=== PATIENT | female | born 1950 | race Caucasian/White ===

== ENCOUNTER → 2018-01-31 | Outpatient (RCR) | payer MEDICARE | LOC: PT 01-13 12:59 | PROVIDERS: ATTEND Specialist | DX: S82.892A Other fracture of left lower leg, initial encounter for closed fracture (principal); G14 Postpolio syndrome; M25.572 Pain in left ankle and joints of left foot; M25.672 Stiffness of left ankle, not elsewhere classified; M62.82 Rhabdomyolysis; R29.3 Abnormal posture; R26.9 Unspecified abnormalities of gait and mobility; R26.89 Other abnormalities of gait and mobility; R26.81 Unsteadiness on feet | CPT/HCPCS: 97110 ×6; 97112 ×2; 97162; G8978; G8979 ==

== ENCOUNTER 2018-02-27 16:00 | Outpatient (RCR) | payer MEDICARE | END 2018-03-03 | LOC: PT 16:00 | PROVIDERS: ATTEND Specialist | DX: S82.892A Other fracture of left lower leg, initial encounter for closed fracture (principal); G14 Postpolio syndrome; M25.572 Pain in left ankle and joints of left foot; M25.672 Stiffness of left ankle, not elsewhere classified; M62.81 Muscle weakness (generalized); R29.3 Abnormal posture; R26.9 Unspecified abnormalities of gait and mobility; R26.89 Other abnormalities of gait and mobility | CPT/HCPCS: 97110 ×7; 97112 ×3; G8978; G8979 ==

== ENCOUNTER 2018-03-07 13:57 | Outpatient (RCR) | payer MEDICARE | END 2018-04-03 | LOC: PT 13:57 | PROVIDERS: ATTEND Specialist | DX: S82.892A Other fracture of left lower leg, initial encounter for closed fracture (principal); M25.572 Pain in left ankle and joints of left foot; M25.672 Stiffness of left ankle, not elsewhere classified; M62.81 Muscle weakness (generalized); R29.3 Abnormal posture; R26.9 Unspecified abnormalities of gait and mobility; R26.89 Other abnormalities of gait and mobility; G14 Postpolio syndrome ==

== ENCOUNTER → 2024-01-02 | Outpatient (RCR) | payer MEDICARE | LOC: PT 12-03 08:28 | PROVIDERS: ATTEND Psychiatry & Neurology Neurology | DX: R26.89 Other abnormalities of gait and mobility (principal); G35 Multiple sclerosis; R53.1 Weakness ==

== ENCOUNTER 2024-01-28 13:00 | Outpatient (RCR) | payer MEDICARE | END 2024-02-01 | LOC: PT 13:00 | PROVIDERS: ATTEND Psychiatry & Neurology Neurology | DX: R26.89 Other abnormalities of gait and mobility (principal); M62.81 Muscle weakness (generalized) ==